=== PATIENT | male | born 1985 | race Caucasian/White ===

== ENCOUNTER 2016-12-03 23:56 | Emergency (ER) | payer OTHER ==
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
[~2016-12-03 23:56] MED LIST: NO MEDICATIONS
== END 2016-12-04 01:00 | disposition home or self-care (01) ==
LOC: CED 23:56
DX: S16.1XXA Strain of muscle, fascia and tendon at neck level, initial encounter (principal); S29.012A Strain of muscle and tendon of back wall of thorax, initial encounter; V49.40XA Driver injured in collision with unspecified motor vehicles in traffic accident, initial encounter
CPT/HCPCS: 72040; 72072; 96372; 99284; J1885